=== PATIENT | female | born 1950 | race African-American/Black ===

== ENCOUNTER 2021-01-30 08:54 | Day surgery (SDC) | payer OTHER, BC ==
[2021-01-24 15:46] VITALS: BMI 26.4
[2021-01-30] MEDS ORDERED: MIDAZOLAM HCL 2 MG/2 ML SINGLE DOSE VIAL ONE (11:10)
[2021-01-30] MEDS ORDERED: BUPIVACAINE HCL/PF 0.5% (5 MG/ML) 30 ML VIAL IJ ONE (11:10)
[2021-01-30] MEDS ORDERED: PROPOFOL 20 ML ONE ×4 (13:55)
[2021-01-30] MEDS ORDERED: ceFAZolin SODIUM 1 GM VIAL ONE (14:37)
[2021-01-30] MEDS ORDERED: ONDANSETRON 4 MG/2 ML VIAL ONE (14:37)
[2021-01-30] MEDS ORDERED: DEXAMETHASONE SOD PHOSPHATE 4 MG/1 ML VIAL ONE (14:37)
[2021-01-30] MEDS ORDERED: KETOROLAC TROMETHAMINE 30 MG/1 ML VIAL ONE (14:37)
[2021-01-30] MEDS ORDERED: TRANEXAMIC ACID 1000 MG/10 ML VIAL ONE (14:37)
[2021-01-30] MEDS ORDERED: ePHEDrine SULFATE 50 MG/1 ML AMPULE ONE (14:53)
[2021-01-30] MEDS ORDERED: BENZOIN/ALOE VERA/STORAX/TOLU 58 ML BOTTLE ONE (15:25)
[2021-01-30 16:02] VITALS: TEMP 97.2
[2021-01-30] MEDS ORDERED: traMADol HCL 50 MG TABLET PO PRN (16:20)
[2021-01-30] MEDS ORDERED: oxyCODONE HCL 5 MG TABLET PO PRN ×2 (16:20)
[2021-01-30] MEDS ORDERED: ACETAMINOPHEN 1000 MG/100 ML VIAL (NON FORMULARY) IVPB ONE (16:20)
[2021-01-30] MEDS ORDERED: ONDANSETRON 4 MG/2 ML VIAL IVPUSH PRN (16:20)
[2021-01-30] MEDS ORDERED: oxyCODONE HCL 5 MG TABLET ONE (16:50)
[2021-01-30 17:42] VITALS: BP 118/72; PULSE 73
== END 2021-01-30 17:43 | disposition home or self-care (01) ==
LOC: FASU 08:54
PROVIDERS: ATTEND Orthopaedic Surgery Orthopaedic Surgery of the Spine
PROC: 0MN10ZZ Release Right Shoulder Bursa and Ligament, Open Approach (ICD-10-PCS; 2021-01-30)
PROC: 0LQ10ZZ Repair Right Shoulder Tendon, Open Approach (ICD-10-PCS; 2021-01-30)
PROC: 0PB90ZZ Excision of Right Clavicle, Open Approach (ICD-10-PCS; principal; 2021-01-30 15:01)
DX: M19.011 Primary osteoarthritis, right shoulder (principal)
CPT/HCPCS: 88304-TC; 88311-TC; 94760